=== PATIENT | male | born 2005 | race Hispanic/Latino ===

== ENCOUNTER 2025-07-18 09:00 | Emergency (ER) | payer OTHER ==
[~2025-07-18] VITALS: Ht 160 cm; Wt 60.0 kg
[2025-07-18 10:15] LABS: BASO # 0.0 10^3/uL (0.0-0.2); BASO % 0.3 % (0.0-1.0); EOS # 0.0 10^3/uL (0.0-0.5); EOS % 0.2 % (0.0-3.0); LYMPH # 0.9 10^3/uL (1.5-5.0); LYMPH % 10.1 % (24.0-44.0); MONO # 0.9 10^3/uL (0.0-0.8); MONO % 10.1 % (2.0-8.0); NEUTROPHILS # 6.9 10^3/uL (1.5-8.5); NEUTROPHILS % 79.0 % (36.0-66.0); PLATELET COUNT, AUTOMATED 166 10^3/uL (150-450)
[2025-07-18 11:00] LABS: ALT/SGPT 35 U/L (7.0-40); AST/SGOT 54 U/L (<34); CALCIUM LEVEL 9.2 MG/DL (8.5-10.1); CARBON DIOXIDE LEVEL 28 MMOL/L (20-31); CHLORIDE LEVEL 98 MMOL/L (98-107); CREATININE FOR GFR 0.95 MG/DL (0.70-1.30); GLOMERULAR FILTRATION RATE > 90.0 (>60); POTASSIUM SERUM 4.0 MMOL/L (3.5-5.1); SODIUM LEVEL 136 MMOL/L (136-145)
[2025-07-18] MEDS ORDERED: ISOVUE-370 76% 100 ML VIAL As Ordered ONE (11:48)
[2025-07-18] MEDS: KETOROLAC 30 MG/ML 1 ML VIAL IV ONE (11:55)
[2025-07-18] MEDS: NS (Normal Saline) 0.9% 1,000 ML IV ONE (11:56)
[2025-07-18] MEDS: ONDANSETRON 4MG/2ML VIAL IV ONE (11:56)
[2025-07-18] MEDS ORDERED: HOME MED LIST COMPLETE! XX SCH (13:15)
[2025-07-18] MEDS ORDERED: ONDA-282 PO (13:17)
[2025-07-18 13:26] VITALS: BP 107/56; TEMP 96.8; O2SAT 99
== END 2025-07-18 13:29 | disposition home or self-care (01) ==
LOC: M ED 09:00
DX: A09 Infectious gastroenteritis and colitis, unspecified (principal); I88.0 Nonspecific mesenteric lymphadenitis
CPT/HCPCS: 74177; 80048; 80076; 83690; 85025; 96360; 96372; 99284; J1885; J2405; Q9967